=== PATIENT | male | born 1965 | race Caucasian/White ===

== ENCOUNTER 2020-01-22 14:23 | Emergency (ER) | payer OTHER, SELFPAY ==
--- NOTE | ~2020-01-22 | XR_ITS ---
XR ankle RT min 3V 01/22/2020 15:06 Indication: Right ankle pain. Previous fracture 7 years ago. Procedure: 4 views right ankle Comparison: No prior studies for comparison. Findings: There are healed distal fibular and tibial fractures. There is an distal tibial side plate and screws transfixing the distal tibia. Osteopenia. No acute fracture or traumatic malalignment. The re is a degenerative calcaneal enthesophyte. Impression: 1: No acute fracture. Reviewed, dictated and finalized at location B. Impression: 1: No acute fracture.
[2020-01-22 14:40] VITALS: BP 133/64; PULSE 80; RESP 18; TEMP 36.7; O2SAT 98
--- NOTE | 2020-01-22 14:47 | ED.LOWEXIN ---
HPI - Extremity Injury (Lower) General Chief Complaint: Wound/Laceration Stated Complaint: right leg sore and ankle swollen Time Seen by Provider: 01/22/20 14:47 Source: patient and RN notes reviewed History of Present Illness HPI Narrative: Patient is a 54-year-old male who presents the urgent care with complaints of right ankle swelling and a sore to the inside of the right ankle. Patient seems to be confused as to when the injury may have occurred and is very simple . Patient is here with a family member who is also a poor historian and unsure of the injury or when it took place. However, family member states that he did shattered his right ankle a few years ago and did have foreign body in the right lower extremity. She believes everything has been removed but she is unsure . Patient has been doctoring the area with peroxide, Neosporin and a Band-Aid. Denies of any known fever. No other acute complaints. No acute distress noted. Patient and family member aware of the plan of care. Some parts of this dictation were generated by voice recognition software and may contain typographical and/or grammatical inaccuracies. Related Data Home Medications Medication Instructions Recorded Confirmed amlodipine 01/22/20 anagrelide mg 01/22/20 aspirin 81 mg PO DAILY 01/22/20 01/22/20 atorvastatin 01/22/20 carvedilol 01/22/20 clopidogrel 01/22/20 cyanocobalamin (vitamin B-12) 1,000 mcg PO DAILY 01/22/20 01/22/20 hydroxyurea 01/22/20 losartan 01/22/20 magnesium oxide 400 mg PO DAILY 01/22/20 01/22/20 memantine 5 mg PO BID 01/22/20 01/22/20 mirtazapine mg 01/22/20 phenytoin sodium extended PO 01/22/20 Allergies Allergy/AdvReac Type Severity Reaction Status Date / Time levetiracetam [From [facility]] AdvReac Agitated Verified 01/22/20 15:13 morphine AdvReac Hypertensio Verified 01/22/20 15:11 n Review of Systems Review of Systems: Narrative: CONSTITUTIONAL: Denies fever, chills, or sweats. EYES: Denies visual changes, redness, or discharge. ENT: Denies rhinorrhea, congestion, sore throat, or otalgia. CARDIOVASCULAR: Denies chest pain, palpitations, or edema. RESPIRATORY: Denies cough or dyspnea. GASTROINTESTINAL: Denies abdominal pain, nausea, vomiting, or diarrhea. GENITOURINARY: Denies dysuria or hematuria. SKIN: Reports of a sore to the inside of the right ankle MUSCULOSKELETAL: Reports of right ankle pain and swelling NEUROLOGIC: Denies headache, numbness, or weakness. All other systems reviewed are negative, except as documented in HPI. PMFSH Comments At the time of my signature, I reviewed and agree with the nursing past medical, surgical, social, and family history. There is no relevant family history pertinent to the patient complaint. Exam Narrative: Exam Narrative: GENERAL: This is a well-nourished, well-developed patient, in no apparent distress. HEAD: normocephalic, atraumatic. EYES: PERRL. Sclera clear/white. Vision is grossly intact. EARS: External ears normal NOSE: External nose normal with no obvious nasal discharge, nares without redness, no rhinorrhea. THROAT: Mucous membranes moist NECK: Neck supple SKIN: 2 cm area of erythema with the draining 1 cm center to the medial aspect of the right lower leg, just above the medial malleolus. good texture and turgor. NEURO: awake, alert, and oriented to person, place and time. There were no obvious focal neurologic abnormalities. EXTREMITIES: Mild nonpitting edema noted to the right lateral and medial malleolus. Positive strong right pedal pulse with capillary refill less than 2 seconds. No obvious deformity or injury. Course Vital Signs Vital signs: Vital Signs Temperature 98.1 F 01/22/20 14:40 Pulse Rate 80 01/22/20 14:40 Respiratory Rate 18 01/22/20 14:40 Blood Pressure 133/64 01/22/20 14:40 Pulse Oximetry 98 01/22/20 14:40 Temperature 98.1 F 01/22/20 14:40 Pulse Rate 80 01/22/20 14:40 Respiratory Rate 18
== END 2020-01-22 15:40 | disposition home or self-care (01) ==
PROVIDERS: Emergency Provider Nurse Practitioner Family
DX: S91.001A Unspecified open wound, right ankle, initial encounter (principal); X58.XXXA Exposure to other specified factors, initial encounter; Z79.82 Long term (current) use of aspirin; Z86.73 Personal history of transient ischemic attack (TIA), and cerebral infarction without residual deficits; G40.909 Epilepsy, unspecified, not intractable, without status epilepticus; I25.10 Atherosclerotic heart disease of native coronary artery without angina pectoris; E78.00 Pure hypercholesterolemia, unspecified; I25.2 Old myocardial infarction
CPT/HCPCS: 73610; 99213; G0463

== ENCOUNTER 2023-12-14 12:58 | Emergency (ER) | payer OTHER, SELFPAY ==
[2023-12-14 13:17] VITALS: BP 137/72; PULSE 82; RESP 16; TEMP 36.2; O2SAT 97
--- NOTE | 2023-12-14 14:12 | ED.SKABFB ---
HPI - Skin/Abscess/Foreign Bdy General Chief complaint: Skin/Abscess/Foreign Body Stated complaint: Skin Sore/Left Leg Time Seen by Provider: 12/14/23 14:10 Source: patient and RN notes reviewed Mode of arrival: ambulatory Limitations: no limitations History of Present Illness HPI narrative: 58 year old male presents with concern for a bug bite to his left thigh. Reports it is swollen, tender and has a blister. Reports min every 2 days. He is not sure wonder if he was bitten by. He denies fever, general malaise, chills, sweats. complaint: insect bite/sting Related Data Home Medications Medication Instructions Recorded Confirmed amlodipine 5 mg tablet 5 mg PO DAILY 01/22/20 01/22/20 anagrelide 1 mg capsule 1 mg PO DAILY 01/22/20 01/22/20 aspirin 81 mg chewable tablet 81 mg PO DAILY 01/22/20 01/22/20 atorvastatin 80 mg tablet 80 mg PO DAILY 01/22/20 01/22/20 carvedilol 6.25 mg tablet 6.25 mg PO DAILY 01/22/20 01/22/20 clopidogrel 75 mg tablet 75 mg PO DAILY 01/22/20 01/22/20 cyanocobalamin (vitamin B-12) 1,000 mcg PO DAILY 01/22/20 01/22/20 1,000 mcg capsule hydroxyurea 500 mg capsule 1,000 mg PO DAILY 01/22/20 01/22/20 losartan 100 mg tablet 100 mg PO DAILY 01/22/20 01/22/20 magnesium oxide 400 mg PO DAILY 01/22/20 01/22/20 memantine 5 mg tablet 5 mg PO BID 01/22/20 01/22/20 mirtazapine 15 mg tablet 15 mg PO DAILY 01/22/20 01/22/20 phenytoin sodium extended 100 mg 300 mg PO DAILY 01/22/20 01/22/20 capsule Allergies Allergy/AdvReac Type Severity Reaction Status Date / Time levetiracetam [From [facility]] AdvReac Agitated Verified 01/22/20 15:13 morphine AdvReac Hypertensio Verified 01/22/20 15:11 n Review of Systems Review of Systems: CONSTITUTIONAL: Denies malaise, chills, sweats, or fever. EYES: Denies redness, or discharge. ENT: Denies rhinorrhea, congestion, swollen lips, swollen tongue CARDIOVASCULAR: Denies chest pain, palpitations, or edema. RESPIRATORY: Denies cough or dyspnea. GASTROINTESTINAL: Denies abdominal pain, nausea, vomiting SKIN: Reports possible bug bite with blister on his left thigh that is tender MUSCULOSKELETAL: Denies joint pain or myalgia. NEUROLOGIC: Denies headache. All systems reviewed & are unremarkable except as noted in HPI and below PMFSH Comments At time of signature, agree with nursing past medical, surgical, social and family history. There is no relevant family history pertinent to the presenting complaint Exam Narrative: GENERAL: Well-appearing, well-nourished, and in no acute distress. HEAD: Normocephalic, atraumatic. EYES: PERRLA, conjunctivae clear, and EOMI. ENT: Mucous membranes moist. Oropharynx without edema, erythema or lesions. NECK: Supple. No lymphadenopathy CHEST: Clear to auscultation. No respiratory distress. HEART: Regular rate and rhythm. SKIN: Warm, dry. 1 cm erythematous area with a clear fluid-filled blister noted to the right thigh with underlying 3 cm of induration. No fluctuation other than the blister noted. NEURO: Alert and oriented x3. PSYCH: Normal mood and affect Course Course Emergency Course: Patient is aware of diagnosis, understands and agrees to treatment plan. Anticipatory guidance given. Patient agrees to follow-up as directed and is aware of reasons to seek care at the emergency department. Portions of this record may have been created with voice recognition software Level of Care: Express Care Visit Vital Signs Vital signs: Vital Signs Temperature 97.1 F L 12/14/23 13:17 Pulse Rate 82 12/14/23 13:17 Respiratory Rate 16 12/14/23 13:17 Blood Pressure 137/72 12/14/23 13:17 Pulse Oximetry 97 12/14/23 13:17 Oxygen Delivery Room Air 12/14/23 13:17 Temperature 97.1 F L 12/14/23 13:17 Pulse Rate 82 12/14/23 13:17 Respiratory Rate 16 12/14/23 13:17 Blood Pressure 137/72 12/14/23 13:17 Pulse Oximetry 97 12/14/23 13:17 Oxygen Delivery Room Air 12/14/23 13:17 Reviewed.
== END 2023-12-14 14:20 | disposition home or self-care (01) ==
PROVIDERS: Emergency Provider Nurse Practitioner
DX: S70.362A Insect bite (nonvenomous), left thigh, initial encounter (principal); L08.9 Local infection of the skin and subcutaneous tissue, unspecified; W57.XXXA Bitten or stung by nonvenomous insect and other nonvenomous arthropods, initial encounter; I25.10 Atherosclerotic heart disease of native coronary artery without angina pectoris; E78.00 Pure hypercholesterolemia, unspecified; I10 Essential (primary) hypertension; G40.909 Epilepsy, unspecified, not intractable, without status epilepticus; I25.2 Old myocardial infarction; I49.9 Cardiac arrhythmia, unspecified; Z86.73 Personal history of transient ischemic attack (TIA), and cerebral infarction without residual deficits; Z95.5 Presence of coronary angioplasty implant and graft
CPT/HCPCS: 99213; G0463

== ENCOUNTER 2023-12-25 14:10 | Emergency (ER) | payer OTHER, SELFPAY ==
[2023-12-25 14:18] VITALS: BP 148/79; PULSE 119; RESP 18; TEMP 36.1; O2SAT 96
--- NOTE | 2023-12-25 15:39 | ED.GENADULT ---
HPI - General Adult General Chief complaint: Skin/Abscess/Foreign Body Stated complaint: Insect Bite/Skin Sore Source: patient Mode of arrival: ambulatory Limitations: no limitations History of Present Illness HPI narrative: Patient presents for evaluation of a wound to the left anterior thigh. He was evaluated here on 12/14/2023 which time he was given a prescription for Augmentin. He completed therapy. He indicates his symptoms have not improved. His daughter believes that his symptoms are related to an insect bite. No fever chills, nausea, vomiting. No purulence from the affected area. Related Data Home Medications Medication Instructions Recorded Confirmed amlodipine 5 mg tablet 5 mg PO DAILY 01/22/20 01/22/20 anagrelide 1 mg capsule 1 mg PO DAILY 01/22/20 01/22/20 aspirin 81 mg chewable tablet 81 mg PO DAILY 01/22/20 01/22/20 atorvastatin 80 mg tablet 80 mg PO DAILY 01/22/20 01/22/20 carvedilol 6.25 mg tablet 6.25 mg PO DAILY 01/22/20 01/22/20 clopidogrel 75 mg tablet 75 mg PO DAILY 01/22/20 01/22/20 cyanocobalamin (vitamin B-12) 1,000 mcg PO DAILY 01/22/20 01/22/20 1,000 mcg capsule hydroxyurea 500 mg capsule 1,000 mg PO DAILY 01/22/20 01/22/20 losartan 100 mg tablet 100 mg PO DAILY 01/22/20 01/22/20 magnesium oxide 400 mg PO DAILY 01/22/20 01/22/20 memantine 5 mg tablet 5 mg PO BID 01/22/20 01/22/20 mirtazapine 15 mg tablet 15 mg PO DAILY 01/22/20 01/22/20 phenytoin sodium extended 100 mg 300 mg PO DAILY 01/22/20 01/22/20 capsule brivaracetam 50 mg tablet mg PO 12/25/23 (Briviact) hydrochlorothiazide 50 mg tablet mg 12/25/23 Allergies Allergy/AdvReac Type Severity Reaction Status Date / Time levetiracetam [From [facility]] AdvReac Agitated Verified 01/22/20 15:13 morphine AdvReac Hypertensio Verified 01/22/20 15:11 n Review of Systems Review of Systems: CONSTITUTIONAL: Denies fever, chills, or sweats. EYES: Denies visual changes, redness, or discharge. ENT: Denies rhinorrhea, congestion, sore throat, or otalgia. CARDIOVASCULAR: Denies chest pain, palpitations, or edema. RESPIRATORY: Denies cough or dyspnea. GASTROINTESTINAL: Denies abdominal pain, nausea, vomiting, or diarrhea. GENITOURINARY: Denies dysuria or hematuria. SKIN: Reports scabbed lesion to the left anterior thigh MUSCULOSKELETAL: Denies back pain, joint pain, or myalgia. NEUROLOGIC: Denies headache, numbness, dizziness, or weakness. PSYCHIATRIC: Denies anxiety or depression. [facility], [facility] Past Medical History Medical History Seizures Surgical History Surgical History Surgical history unknown Family History Family History Mother Unknown family medical history Social History Social History Living arrangements: with family Gender identity (if verbalized by the patient): Male Spiritual care concerns: No Exam Narrative: GENERAL: Well-appearing, well-nourished, and in no acute distress. HEAD: Normocephalic, atraumatic. EYES: PERRLA and EOMI. ENT: Nares clear, no rhinorrhea or epistaxis. Mucous membranes moist. Oropharynx without tonsillar hypertrophy exudate or other lesions. Bilateral TMs pearly flannery nonbulging NECK: Supple. No adenopathy or masses. No carotid bruits or JVD CHEST: Clear to auscultation. No respiratory distress. No wheezes rales or rhonchi HEART: Regular rate and rhythm. No murmur heard. Normal peripheral pulses. ABDOMEN: Soft, nontender, nondistended, normal active bowel sounds. EXTREMITIES: Normal range of motion. No edema. SKIN: 2.4 x 1.8 cm area of erythema to the left anterior thigh with a central scabbed lesion. There is no underlying fluctuance NEURO: No focal deficits. Alert and oriented x3. PSYCH: Normal mood and affect. Course Course [place]
== END 2023-12-25 15:39 | disposition home or self-care (01) ==
PROVIDERS: Emergency Provider Nurse Practitioner
DX: L08.9 Local infection of the skin and subcutaneous tissue, unspecified (principal); B96.89 Other specified bacterial agents as the cause of diseases classified elsewhere; G40.909 Epilepsy, unspecified, not intractable, without status epilepticus
CPT/HCPCS: 99213; G0463